=== PATIENT | female | born 1950 | race Caucasian/White ===

== ENCOUNTER 2023-07-11 11:00 | Outpatient (RCR) | payer MEDICARE, SELFPAY | END 2023-07-18 10:19 | disposition home or self-care (01) | PROVIDERS: PCP Family Medicine; Visit Provider Family Medicine | DX: M25.511 Pain in right shoulder (principal); Z51.89 Encounter for other specified aftercare | CPT/HCPCS: 97110; 97140; 97161 ==

== ENCOUNTER 2024-12-08 11:00 | Outpatient (RCR) | payer MEDICARE, SELFPAY | END 2025-01-29 14:02 | disposition home or self-care (01) | PROVIDERS: PCP Family Medicine; Visit Provider Family Medicine | DX: M25.511 Pain in right shoulder (principal); G89.29 Other chronic pain; Z51.89 Encounter for other specified aftercare | CPT/HCPCS: 97110; 97161 ==

== ENCOUNTER 2025-02-05 06:07 | Day surgery (SDC) | payer MEDICARE, SELFPAY ==
[2025-02-05] VITALS (17 sets, daily range): BP systolic 118–151; BP diastolic 55–79; PULSE 55–70; RESP 14–20; TEMP 36.2–37.9; O2SAT 91–97; BMI 32.7
[2025-02-05] MEDS: OXYCODONE (CR) 10 MG TAB.ER.12H PO (06:15)
[2025-02-05] MEDS: ACETAMINOPHEN 500 MG TABLET 1000 MG PO (06:15)
[2025-02-05] MEDS: CELECOXIB 200 MG CAPSULE PO (06:15)
[2025-02-05] MEDS: SODIUM CHLORIDE 0.9 % (FLUSH) 10 ML SYRINGE IVF (06:45)
[2025-02-05] MEDS: LACTATED RINGERS 1000 ML 1,000 ML 100 ML IV ×2 (06:45→09:29)
[2025-02-05] MEDS: fentaNYL 100 MCG/2 ML inj IVP (07:04)
[2025-02-05] MEDS: MIDAZOLAM HCL 1 MG/ML inj IVP (07:04)
--- NOTE | 2025-02-05 07:13 | SUR.PREOP ---
TIME?OUT:?0703 PT/RN/MDA?VERIFICATION?OF?SURGICAL?SITE,?PROCEDURE,?AND?CONSENT OBTAINED?PRIOR?TO?INVASIVE?PROCEDURE.
[2025-02-05] MEDS: CEFAZOLIN 1 GM inj IVP (07:36)
[2025-02-05] MEDS: TRANEXAMIC ACID 100 MG/ML INJ 1000 MG IV (07:36)
--- NOTE | 2025-02-05 08:00 | SUR.OPER ---
PATIENT QUESTIONS ANSWERED SATISFACTORILY PREOPERATIVELY. PATIENT BROUGHT TO OR #2 PER CART FOLLOWING THE BLOCK. Patient positioned supine on OR #2 bed for the intubation.? Perioperative team wrapped the?left arm in a neutral position on the pt. abdomen with the drawsheet.? Right arm elevated on an IV pole in a padded strap. Final approval of positioning by surgeon.
--- NOTE | 2025-02-05 09:01 | CRLHL7_ITS ---
For Patients: As a result of the Cures Act, medical imaging exams and procedure reports are released immediately into your electronic medical record. You may view this report before your referring provider. If you have questions, please contact your health care provider. Indication: Postop Technique: Three views right shoulder Findings/Impression: Hardware from a right shoulder arthroplasty is in satisfactory position. Bone alignment is normal. No sign of acute fracture. Postop changes are within normal limits. Dictated by Osmani See MD @ 02/05/2025 11:15:26 AM (Electronically Signed)
--- NOTE | 2025-02-05 09:04 | P.ORPRC_ITS ---
Procedure Note Date of procedure: 02/05/25 Procedure: PREOPERATIVE DIAGNOSIS: Right shoulder rotator cuff tear arthropathy POSTOPERATIVE DIAGNOSIS: Right shoulder rotator cuff tear arthropathy NAME OF OPERATION: Right upper extremity reverse shoulder arthroplasty, biceps tenodesis SURGEON: Daniel Reyes MD ELECTRONIC MUSICAL INSTRUMENT REPAIRER: Jodi Harrell PA-C ANESTHESIA: General endotracheal ESTIMATED BLOOD LOSS: 350 mL COMPLICATIONS: None SPECIMENS: None DRAINS: None PREOPERATIVE ANTIBIOTICS: Ancef 2 grams IMPLANTS: 1. Tornier 25mm x 35mm baseplate 2. 36mm standard glenosphere 3. 5B humeral stem 4. High eccentric +0 humeral tray 5. 36mm +6 polyethylene INDICATIONS: The patient is a 74-year-old with a longstanding history of severe, unrelenting right shoulder pain secondary to rotator cuff tear arthropathy. Despite appropriate nonoperative management, including activity modification, anti-inflammatories, dyuq-tlu-nldxbqo pain medication, physical therapy, and injections they continue to have pain and disability. Operative intervention was offered. The risks, benefits and expected outcomes were discussed in detail. These included but were not limited to: Infection, bleeding, injury to blood vessel or nerve, venous thromboembolism. All questions were answered to their satisfaction. Use of an assistant brand manager was necessary throughout the case for patient positioning and safety, soft tissue retraction, and closure. PROCEDURE: General anesthesia was administered. The patient was placed in the lazy beach chair position on the operating room table. The right upper extremity was prepped and draped in the usual sterile fashion. A standard deltopectoral incision was made. Subcutaneous dissection was taken with electrocautery to the deltopectoral interval. The cephalic vein was mobilized, lateral branches were cauterized. The vein was taken medially with the pectoralis. We bluntly entered the deltopectoral interval. We freed up the deltoid. The upper 1/3 of the insertion of the pectoralis was divided with cautery. The static retractor was placed. The clavipectoral fascia and CA ligament were divided. The circumflex vessels were controlled with electrocautery. The biceps was dissected out of the bicipital groove, was tagged with a #2 FiberWire suture and divided proximally. Two fiberWire sutures were placed in the subscapularis. The subscap was subperiosteally elevated off of the lesser tuberosity. The humeral head was delivered into the wound. The intramedullary humeral cutting guide was placed. We made the cut at the anatomic neck, in 30? of retroversion. Humeral sounds were used to assess the diameter of the canal. The broach was placed and had good rotational stability. The calcar reamer was used and the protective base plate cover was placed. Attention was then turned to the glenoid. Hohmann retractors were placed posteriorly. The labrum and biceps stump were sharply debrided. The origin of the inferior glenohumeral ligaments were subperiosteally released off of the glenoid. The drill guide was placed. The guide pin was placed in 0? of cephalic tilt. The reamer was used to bleeding bone. The central drill was used x2. The tap was used. The standard base plate was placed. This had excellent purchase. Locking screws x 2 were placed. The glenosphere was placed, the set screw was tightened. Attention then returned to the humerus. We placed a high eccentric standard base plate and standard poly. We reduced the shoulder and took it through a range of motion. It was found to be stable with appropriate soft tissue tension. Trial humeral components were removed. The biceps was tenodesed in the bicipital groove with drill holes and our previously placed FiberWire suture. We placed #2 FiberWire sutures in the lesser tuberosity for subsequent subscap repair. We assembled the humeral component on the back table. We placed it in the center of our subscapularis repair sutures and tapped it down to our humeral cut. This had excellent purchase. The shoulder was reduced and again was found to be stable with appropriate soft tissue tension. We did a 3 min dilute Betadine solution soak. We irrigated the wound with 3 L of normal saline via pulse lavage. We repaired the subscapularis to the lesser tuberosity with our previously placed FiberWire sutures. The deltopectoral interval was loosely reapproximated with an 0 Vicryl in an interrupted [id number] fashion. Subcutaneous tissues were closed with the 2-0 Vicryl and a running 3-0 Monocryl suture. The skin was sealed with glue. A dry dressing and sling were applied. Sponge and needle counts were correct x2. The patient tolerated the procedure well, there were no apparent complications. They were awakened and extubated in the operating room, taken to the postanesthesia care unit in satisfactory condition. PLAN: The patient will be mobilized with physical therapy. The sling will be used for 6 weeks postoperatively. Active range of motion in forward flexion and abduction as tolerates. No external rotation greater than 0? for 6 weeks postoperatively. They will be discharged to home once medically appropriate.
--- NOTE | 2025-02-05 09:48 | P.ANES_ITS ---
Anesthesia Charges Start Date/Time Anesthesia Start Date: 02/05/25 Anesthesia Start Time: 07:13 Stop Date/Time Anesthesia Stop Date: 02/05/25 Anesthesia Stop Time: 09:46 Summary Extremes of Age - Over 70 or under 1: SALES SUPPORT ADMINISTRATOR Coding CPT Codes CPT Codes: ANESTH SHOULDER REPLACEMENT - 50383 ([id number]) P2 - PATIENT W/MILD SYST DISEASE, QK - GRADER PATROL 2-4 CNCRNT ANES PROC, QX - SALES SUPPORT ADMINISTRATOR SVC W/ MD MED DIRECTION Additional Codes: Summary - Extremes of Age - Over 70 or under 1: SALES SUPPORT ADMINISTRATOR ([id number])
--- NOTE | 2025-02-05 09:48 | W.ANESCHARGE ---
Anesthesia Charges Start Date/Time Anesthesia Start Date: 02/05/25 Anesthesia Start Time: 07:13 Stop Date/Time Anesthesia Stop Date: 02/05/25 Anesthesia Stop Time: 09:46 Summary Extremes of Age - Over 70 or under 1: PRINTED CIRCUIT BOARDS ROUTER Coding CPT Codes CPT Codes: ANESTH SHOULDER REPLACEMENT - 38009 ([id number]) P2 - PATIENT W/MILD SYST DISEASE, QK - VICE PRESIDENT OF BRAND MANAGEMENT 2-4 CNCRNT ANES PROC, QX - PRINTED CIRCUIT BOARDS ROUTER SVC W/ MD MED DIRECTION Additional Codes: Summary - Extremes of Age - Over 70 or under 1: PRINTED CIRCUIT BOARDS ROUTER ([id number])
[2025-02-05] MEDS: hydrOXYzine pamoate 25 MG CAPSULE PO (10:20)
[2025-02-05] MEDS: OXYCODONE 5 MG TABLET PO (10:30)
--- NOTE | 2025-02-05 12:02 | P.NB_ITS ---
Nerve Block Nerve Block Time Seen by Provider: 07:10 Date Seen: 02/05/25 Type of block requested by surgeon for post-operative analgesia: supraclavicular Side: right Time out performed: Yes Verification of patient name: Yes Verification of date of : Yes Site marking: site marked Name of person performing procedure: Jose Continuous monitoring Was continuous monitoring of O2 sat, B/P, bus driver/monitor, recorded every 15 minutes?: Yes Procedure Checklist: sterile prep, needles and gloves Ultrasound guided. Images saved: Yes Medications given in 5ml increments after negative aspiration: Marcaine %: 0.25 mL: 5 and Exparel mL: 10 Needle gauge: 22 Patient tolerated procedure well: Yes Block Charges Block Charge (with Pro Fee): Brachial Plexus Use of Ultrasound Machine for Block: Yes- US Guidance/pain block
--- NOTE | 2025-02-05 12:03 | W.ANESCHARGE ---
Anesthesia Charges Start Date/Time Anesthesia Start Date: 02/05/25 Anesthesia Start Time: 07:13 Stop Date/Time Anesthesia Stop Date: 02/05/25 Anesthesia Stop Time: 09:46 Summary Extremes of Age - Over 70 or under 1: MDA Coding CPT Codes CPT Codes: ANESTH SHOULDER REPLACEMENT - 35481 ([id number]) QK - CRANBERRY FARM SUPERVISOR 2-4 CNCRNT ANES PROC, QX - TRUST VAULT CLERK SVC W/ MD MED DIRECTION, P2 - PATIENT W/MILD SYST DISEASE Additional Codes: Summary - Extremes of Age - Over 70 or under 1: MDA ([id number])
--- NOTE | 2025-02-05 13:40 | SUR.PHASEII ---
OT here to patient. Pt tolerated grilled cheese and banana, 2 Sprite. Denies pain in shoulder. VSS. Sat on edge of bed. Tolerated without difficulty.
== END 2025-02-05 14:35 | disposition home or self-care (01) ==
LOC: OR 06:08
PROVIDERS: PCP Family Medicine; Visit Provider Orthopaedic Surgery
PROC: 0RRJ0JZ Replacement of Right Shoulder Joint with Synthetic Substitute, Open Approach (ICD-10-PCS; CPT 23472; principal; 2025-02-05 07:15)
DX: M75.121 Complete rotator cuff tear or rupture of right shoulder, not specified as traumatic (principal); M19.011 Primary osteoarthritis, right shoulder; S46.111A Strain of muscle, fascia and tendon of long head of biceps, right arm, initial encounter; G89.18 Other acute postprocedural pain
CPT/HCPCS: 23472; 23430; 01638; 64415; 73030; 76942; 97110; 97165; 97535; 99100; A9270; C1713; C1776; J0665; J0666; J0690; J1100; J2250; J2405; J2704; J2710; J3010; J7120; L3670

== ENCOUNTER 2025-05-25 13:45 | Outpatient (RCR) | payer MEDICARE, SELFPAY ==
--- NOTE | 2025-02-20 17:34 | PT.OPEX ---
PT [place] Outpatient Eval PT [facility] Outpatient Eval Start: 02/20/25 16:58 Freq: Status: Active Protocol: Document 02/20/25 16:58 SALAZAR (Rec: 02/20/25 17:31 SALAZAR [id number]) E-signed By Jeannette Reza DPT Physical Therapy Outpatient Evaluation Insurance Information Recert Due Date 05/21/25 Insurance Name Medicare B,[facility] Medical Diagnosis s/p R reverse TSA, biceps tenodesis 02/05/25 Treating Diagnosis s/p R reverse TSA and biceps tenodesis 02/05/25 with R shoulder pain, impaired R shoulder ROM, impaired R shoulder/UE mobility/strength, impaired functional use of R shoulder/UE, currently restricted in R UE sling Subjective Subjective Patient reports injury to her R shoulder with a fall on the ice back in 2022. Reports having PT after the fall and was doing better. She continued with exercises, workouts at the [facility], and being generally busy with family events and travel for the last couple of years. She started having increased R shoulder pain and tried some PT again back in Oct but without improvement. She had an MRI in December leading to R reverse TSA surgery on 02/05. Patient has been in a sling the last couple of weeks. She has been doing the hand, wrist and elbow ROM exercises given to her by . States she hasn't been taking the sling off to stretch in elbow ext. She had f/u with PA this week - states PA felt her elbow was tight and she should stretch it straight more. Patient is sleeping on a love seat with pillow support/ propping of R UE. She was using oxy pain meds x 2 days after surgery and now tylenol regularly. Also icing regularly. Pain range 2-4/10. She is R handed. Date of Last Physician Visit 02/11/25 Date of Next Physician Visit 03/18/25 Date of Surgery (If applicable) 02/05/25 Current Work Status Retired Precautions Treatment Precautions/Contraindications s/p R reverse TSA 02/05/25. R UE sling x 6 weeks. PROM to start, progression with AAROM as tolerated. ER to neutral x 6 weeks. OK for sling off some at home, some AROM flex/abd use of R UE at home. Objective Functional Test Performed & Score QuickDASH disability score 88. 6 Assessment Assessment/Impression Patient is a 74 year old female s/p R reverse TSA and biceps tenodesis 02/05/25 with R shoulder pain, impaired R shoulder ROM, impaired R shoulder/UE mobility/strength, impaired functional use of R shoulder/UE, currently restricted in R UE sling. Pain range 2-4/10. Patient has been using R UE sling since surgery. Reports wearing it most of the time, not taking it off much at home - just for dressing, showering. Reviewed hand/ wrist/elbow ROM, elbow ext stretching for HEP. Discussed having sling off some at rest at home. Per MD surgical note - sling x 6 weeks, ok for active range of motion in forward flexion and abduction as tolerates. No external rotation greater than 0? for 6 weeks postoperatively. Reviewed current precautions/ restrictions with patient. Able to initiate shoulder PROM this session. Patient to continue with her HEP, added shoulder rolls, scap sets, codmans. Patient R shoulder PROM: flex 80 degrees, scap 70 degrees, IR 55 degrees, ER to neutral. PROM limited by tightness, stiffness, pain, and guarding. QuickDASH disability score of 88.6. Patient would benefit from skilled PT for pain/sx management, improved R shoulder ROM, improved R shoulder/UE mobility/strength, return to functional use of R shoulder/UE, and establishment of HEP. Plan of Care Rehabilitation Potential Good Physical Therapy Goals 1. Decrease R shoulder pain to less than/equal to 3/10 with daily activities and with the progression of PT activities over the next 6-8 weeks. 2. Improve R shoulder PROM over the next 6-8 weeks to prepare for return to functional use of R shoulder/UE. 3. Improve R shoulder AROM over the next 8-10 weeks for return to functional use of R shoulder/ UE with daily activities. 4. Improve R shoulder/UE strength over the next 10-12 weeks for return to full functional use of R shoulder/UE with daily activities. 5. Patient will be I with HEP within 12 weeks for progression toward above goals, ongoing self management of pain/sx, ongoing self improvements in ROM/strength/function, and for return to full functional use of R shoulder/UE with daily activities. Coordination/Communication With Referral Source Treatment Plan/Direct Interventions Manual Therapy,Therapeutic Exercises Frequency/Duration 2x/week Patient Will Be Discharged From Therapy Completion of LTG(s),Skills Plateau,Independent w/HEP, Independently Progressing Evaluation Billing Untimed Code Treatment Minutes 24 Complexity Moderate Certification Information Initial Certification Date 02/20/25 Ending Certification Date 05/21/25 Provider Signature Required Yes Provider Signature Shows Agreement With POC & Medical Necessity Physician NPI Number Write NPI# Here Physician Comment/Change : Physician Signature & Date Requested Please Sign/Date Here
== END 2025-09-22 23:59 | disposition home or self-care (01) ==
PROVIDERS: PCP Family Medicine; Visit Provider Orthopaedic Surgery
DX: Z48.89 Encounter for other specified surgical aftercare (principal); Z96.611 Presence of right artificial shoulder joint; Z51.89 Encounter for other specified aftercare
CPT/HCPCS: 97110; 97162